=== PATIENT | female | born 1950 | race Caucasian/White ===

== ENCOUNTER 2021-10-23 13:59 | Outpatient (CLI) | payer MEDICARE, SELFPAY ==
[2021-10-23 19:46] LABS: Bacteria Urine Trace /hpf; Mucus Urine Rare /lpf; RBC Urine 0-2 /hpf (0-2); Squamous Epithelial Cell Urine Rare /hpf (Few); WBC Urine 0-3 /hpf
[2021-10-23 19:48] LABS: Appearance Urine Clear (Clear); Bilirubin Urine Negative (Negative); Blood Urine Negative (Negative); Color Urine Yellow (Yellow); Glucose Urine UA Negative (Negative); Ketones Urine Negative (Negative); Leukocyte Esterase Ur Trace LEU/UL (Negative); Nitrate Urine Negative (Negative); Protein Urine 1+ mg/dL (Negative); Urobilinogen Urine 0.2 mg/dL (<2.0); pH Urine 5.5 (5.0-9.0)
[2021-10-23 19:56] LABS: Add Urine Microscopic? YES
== END 2021-10-23 14:00 | disposition home or self-care (01) ==
LOC: ANHGOSHLAB 14:04
PROVIDERS: PCP Emergency Medicine; Visit Provider Emergency Medicine
DX: R22.41 Localized swelling, mass and lump, right lower limb (principal); R55 Syncope and collapse; R31.9 Hematuria, unspecified
CPT/HCPCS: 81001

== ENCOUNTER 2021-12-24 12:25 | Emergency (ER) | payer MEDICARE, SELFPAY ==
--- NOTE | ~2021-12-24 | XR_ITS ---
EXAMINATION: XR foot LT min 3V DATE: 12/24/2021 12:59 INDICATION: Anterior left foot pain post trauma TECHNIQUE: Dorsoplantar, two oblique and lateral views of the left foot were obtained. COMPARISON: None. FINDINGS: Alignment is normal. No fracture. Polyarticular osteoarthritis, mild to moderate severity at multiple interphalangeal joints and mild at the majority the remaining joints in the mid and hindfoot. Modera te to large Achilles and plantar calcaneal spurs. Sclerotic margin in the distal tibial metadiaphysis with suggestion of ring and arc-like chondroid matrix favoring an enchondroma. Soft tissues are unre markable. IMPRESSION: 1. Mild to moderate polyarticular osteoarthritis with interphalangeal joint predominance. No acute os seous abnormalities. 2. Sclerotic lesion in the distal left tibial metadiaphyseal region with appearance favoring an encho ndroma but incompletely visualized, inadequate to assess for aggressive features and would recommend dedicated left tibia and fibula radiographs for further evaluation. Reviewed, dictated and finalized at location A. IMPRESSION: 1. Mild to moderate polyarticular osteoarthritis with interphalangeal joint pre dominance. No acute osseous abnormalities. 2. Sclerotic lesion in the distal left tibial metadiaphyseal region with appear ance favoring an enchondroma but incompletely visualized, inadequate to assess for aggressive features and would recommend dedicated left tibia and fibula rad iographs for further evaluation.
[2021-12-24 12:32] VITALS: BP 142/78; PULSE 79; RESP 20; TEMP 36.6; O2SAT 98
--- NOTE | 2021-12-24 13:02 | ED.LOWEXIN ---
HPI - Extremity Injury (Lower) General Chief Complaint: Extremity Injury, Lower Stated Complaint: left foot injury Time Seen by Provider: 12/24/21 12:35 Source: patient Mode of arrival: ambulatory Limitations: no limitations History of Present Illness HPI Narrative: Ms. Castle is a 71-year-old female patient presenting to the clinic today with complaints of left foot pain/injury stubbing her toe on . She reports that the top of her foot is bruised and painful with ambulation. Noticed some swelling to her lateral and medial foot last night Related Data Home Medications Medication Instructions Recorded Confirmed cyanocobalamin (vitamin B-12) 1,000 mcg PO ONCE 12/01/19 12/24/21 1,000 mcg tablet (Vitamin B-12) aspirin 325 mg tablet 325 mg PO DAILY 04/20/21 12/24/21 ferrous sulfate 325 mg (65 mg 325 mg PO DAILY 09/18/21 12/24/21 iron) tablet Allergies Allergy/AdvReac Type Severity Reaction Status Date / Time erythromycin base Allergy Unknown Nausea Verified 12/24/21 12:47 Review of Systems Review of Systems: Pertinent positives per HPI. Patient denies any fever, chills, rash, headache, visual changes, dizziness, cough, runny nose, sore throat, shortness of breath, chest pain, palpitations, nausea, vomiting, diarrhea, constipation, abdominal pain, or any urinary issues. [facility] Past Medical History Medical History Allergies Benign essential hypertension Congestive heart failure Coronary artery disease Depression Heart disease History of echocardiogram (~02/21/11) Hypothyroidism Metabolic syndrome X Mixed hyperlipidemia Positive cardiac stress test (~02/12/11) referred to cardio Thyroid disorder Type 1 diabetes mellitus Surgical History Surgical History History of tonsillectomy (~195) Hx of CABG (~2011) Family History Family History Father Diabetes mellitus Family history of hypercholesterolemia Hypertension Family history of cardiovascular disease Family history of kidney disease Family history of atrial fibrillation, Onset Age: 84 Family history of congestive heart failure, Onset Age: 84 Thyroid disorder Sibling Family history of cardiovascular disease Patient's brother is , Onset Age: 47 Alcoholism Diabetes mellitus Hypertension Heart disease Mother Heart disease Cerebrovascular accident Grandparent Diabetes mellitus Heart disease Other Family history of elevated blood lipids Social History Social History Smoking status: Former smoker Smoking end date: 03/04/06 Alcohol intake: never 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 There is no relevant family history pertinent to the patient complaint. Exam Narrative: General: Well-developed, well nourished, in no apparent distress Head: Normocephalic, atraumatic. Cardio: Regular rate and rhythm, s1 and s2 normal, no murmur appreciated. Resp: Clear to auscultation bilaterally, no rhonchi, rales, wheezing or rubs. Musculoskeletal: No deformity, tender to palpation over the dorsal foot with tenderness to the base of the second toe on the left foot, grossly normal range of motion, muscle strength strong and equal, peripheral pulse strong, no edema, no cyanosis, normal gait and station Course Course Emergency Course: Portions of this record may have been created with voice recognition software. Level of Care: Express Care Visit Vital Signs Vital signs: Vital Signs Temperature 36.6 C 12/24/21 12:32 Pulse Rate 79 12/24/21 12:32 Re
== END 2021-12-24 13:52 | disposition home or self-care (01) ==
PROVIDERS: Emergency Provider Nurse Practitioner Family
DX: M79.672 Pain in left foot (principal); M79.89 Other specified soft tissue disorders; Z87.891 Personal history of nicotine dependence; I11.0 Hypertensive heart disease with heart failure; I50.9 Heart failure, unspecified; I25.10 Atherosclerotic heart disease of native coronary artery without angina pectoris; E03.9 Hypothyroidism, unspecified; E78.2 Mixed hyperlipidemia; E10.9 Type 1 diabetes mellitus without complications; E88.81 Metabolic syndrome and other insulin resistance; Z95.1 Presence of aortocoronary bypass graft
CPT/HCPCS: 73630; 99213; G0463

== ENCOUNTER 2022-08-10 08:32 | Outpatient (CLI) | payer MEDICARE, SELFPAY ==
[2022-08-10 08:47] LABS: Basophils Absolute Auto 0.04 K/mm3 (0.00-0.10); Basophils Percent Auto 0.8 % (0.0-1.0); Eosinophils Absolute Auto 0.21 K/mm3 (0.02-0.50); Eosinophils Percent Auto 4.1 % (1.0-6.0); Hematocrit 35.5 % (35.0-42.0); Hemoglobin 10.9 g/dL (11.7-13.8); Immature Granulocyte Absolute 0.01 K/mm3 (0.00-0.00); Immature Granulocyte Percent A 0.2 % (0.0-0.0); Lymphocytes Absolute Auto 1.35 K/mm3 (1.10-4.50); Lymphocytes Percent Auto 26.1 % (18.0-42.0); Mean Corpuscular HGB Conc 30.7 g/dL (32.0-36.0); Mean Corpuscular Hemoglobin 28.4 pg (27.0-31.0); Mean Corpuscular Volume 92.4 fL (78.0-102.0); Mean Platelet Volume 9.2 fl (9.2-11.8); Monocytes Absolute Auto 0.37 K/mm3 (0.10-0.90); Monocytes Percent Auto 7.1 % (2.0-11.0); Neutrophils Absolute Auto 3.2 K/mm3 (1.7-7.2); Neutrophils Percent Auto 61.7 % (50.0-70.0); Platelet Count Result 210 K/mm3 (150-420); Red Blood Count 3.84 M/mm3 (4.20-5.40); White Blood Count 5.2 K/mm3 (4.8-10.8)
[2022-08-10 09:13] LABS: Hemoglobin A1C 6.3 % (<5.7)
[2022-08-10 09:15] LABS: Creatinine Urine 97.68 mg/dL (40-278); Microalbumin Urine Random 132.9 mg/L
[2022-08-10 09:40] LABS: Alanine Aminotransferase 22 U/L (14-59); Albumin Level 4.1 g/dL (3.4-5.0); Alkaline Phosphatase 54 U/L (46-116); Anion Gap 10 mmol/L (8-16); Aspartate Amino Transferase 19 U/L (15-37); Bilirubin,Total 0.2 mg/dL (0.00-1.00); Blood Urea Nitrogen 20 mg/dL (7-18); Calcium 9.4 mg/dL (8.5-10.1); Carbon Dioxide 30 mmol/L (21-32); Chloride 101 mmol/L (98-108); Cholesterol 153 mg/dL (0-200); Estimated Glomerular Filt Rate 47; Free T4 Free Thyroxine 1.17 ng/dL (0.76-1.46); Glucose 160 mg/dL (70-99); HDL Direct 42 mg/dL (40-60); LDL Cholesterol Calculated 75 mg/dL (<130); Osmolality Calculated 297 mOsm/kg (285-295); Potassium 4.3 mmol/L (3.5-5.1); Sodium 141 mmol/L (136-145); Thyroid Stimulating Hormone 0.28 uIU/mL (0.36-3.74); Total Protein 6.9 g/dL (6.4-8.2); Triglycerides 182 mg/dL (0-150)
[2022-08-10 11:34] LABS: Immature Reticulocyte Fraction 13.5 % (2.0-16.52); Reticulocyte Hemoglobin Conten 30.7 pg (28.0-35.0); Reticulocyte Percent 1.21 % (0.50-1.50); Reticulocytes Absolute 0.05 M/mm3 (0.02-0.1)
[2022-08-10 11:54] LABS: Ferritin 76 ng/mL (8-252); Iron 53 ug/dL (50-170); Percent Iron Saturation 15 % (12-57)
== END 2022-08-10 08:33 | disposition home or self-care (01) ==
LOC: CHSLAB 08:35
PROVIDERS: PCP Emergency Medicine; Visit Provider Physician Assistant
DX: E03.9 Hypothyroidism, unspecified (principal); E11.65 Type 2 diabetes mellitus with hyperglycemia; E78.2 Mixed hyperlipidemia; D64.9 Anemia, unspecified; E66.9 Obesity, unspecified
CPT/HCPCS: 36415; 80053; 80061; 82043; 82728; 83036; 83540; 83550; 84439; 84443; 85025; 85046

== ENCOUNTER 2022-10-02 08:04 | Outpatient (CLI) | payer MEDICARE, SELFPAY ==
--- NOTE | ~2022-10-02 | MM_ITS ---
EXAMINATION: MM screening cyrus BI w christiano HISTORY: Screening mammogram TECHNIQUE: Craniocaudal and mediolateral oblique 3-D tomosynthesis images were obtained and synthetic 2-D images were generated. CAD analysis was submitted and interpreted. COMPARISON: No prior mammogram is available for comparison at this institution. BREAST PARENCHYMAL COMPOSITION: There are scattered areas of fibroglandular density. FINDINGS: Occasional bilateral benign calcifications. There is no evidence of suspicious mass, calcif ication, or architectural distortion to suggest malignancy in either breast. There has been no suspic ious interval change. IMPRESSION: 1. No mammographic evidence of malignancy. 2. Recommend routine screening mammography in one year. BI-RADS Category 1: Negative Reviewed, dictated and finalized at location A.
[2022-10-02 08:19] LABS: Hemoglobin 11.2 g/dL (11.7-13.8); Mean Corpuscular Hemoglobin 28.9 pg (27.0-31.0); Mean Corpuscular Volume 90.4 fL (78.0-102.0); Mean Platelet Volume 9.7 fl (9.2-11.8); Platelet Count Result 228 K/mm3 (150-420); Red Blood Count 3.87 M/mm3 (4.20-5.40); Red Cell Distribution Width 12.8 % (11.6-14.4); White Blood Count 5.2 K/mm3 (4.8-10.8)
[2022-10-02 09:24] LABS: Free T4 Free Thyroxine 0.99 ng/dL (0.76-1.46); Thyroid Stimulating Hormone 0.37 uIU/mL (0.36-3.74)
== END 2022-10-02 08:05 | disposition home or self-care (01) ==
LOC: CHSIMG 08:05
PROVIDERS: PCP Emergency Medicine; Visit Provider Physician Assistant
DX: Z12.31 Encounter for screening mammogram for malignant neoplasm of breast (principal); E11.65 Type 2 diabetes mellitus with hyperglycemia; M54.2 Cervicalgia
CPT/HCPCS: 36415; 77063; 77067; 84439; 84443; 85027

== ENCOUNTER 2022-12-11 15:49 | Outpatient (CLI) | payer MEDICARE, SELFPAY ==
[2022-12-11 16:04] LABS: Basophils Absolute Auto 0.1 K/mm3 (0.0-0.1); Basophils Percent Auto 1.1 % (0.2-1.2); Eosinophils Absolute Auto 0.2 K/mm3 (0-0.3); Eosinophils Percent Auto 4.2 % (0-4.4); Hematocrit 36.1 % (37.0-47.0); Hemoglobin 11.3 g/dL (12.0-15.0); Immature Granulocyte Absolute 0.02 K/mm3 (0.00-0.031); Immature Granulocyte Percent A 0.4 % (0-0.5); Lymphocytes Absolute Auto 2.09 K/mm3 (0.9-3.2); Lymphocytes Percent Auto 37.7 % (18.3-44.2); Mean Corpuscular HGB Conc 31.3 g/dl (32-36); Mean Corpuscular Hemoglobin 28.3 pg (26-34); Mean Corpuscular Volume 90.5 fl (80-100); Mean Platelet Volume 9.1 fl (7.4-10.4); Monocytes Absolute Auto 0.5 K/mm3 (0.1-0.6); Monocytes Percent Auto 8.3 % (2.6-8.5); Neutrophils Absolute Auto 2.7 K/mm3 (1.3-6.7); Neutrophils Percent Auto 48.3 % (45.5-73.1); Platelet Count Result 250 k/mm3 (150-375); Red Blood Count 3.99 M/mm3 (4.2-5.4); Red Cell Distribution Width 13.2 % (11.5-14.5); White Blood Count 5.5 K/mm3 (4.5-10.0)
[2022-12-11 16:43] LABS: Alanine Aminotransferase 29 U/L (6-35); Albumin Level 4.7 g/dL (3.5-5.1); Alkaline Phosphatase 64 U/L (38-126); Anion Gap 7 mmol/L (8-16); Aspartate Amino Transferase 30 U/L (14-36); Bilirubin,Total 0.4 mg/dL (0.2-1.3); Blood Urea Nitrogen 18 mg/dL (7-17); Calcium 9.6 mg/dL (8.4-10.2); Carbon Dioxide 32 mmol/L (22-30); Chloride 100 mmol/L (98-107); Estimated Glomerular Filt Rate 44; Glucose 96 mg/dL (65-110); Iron 107 ug/dL (37-170); Potassium 4.3 mmol/L (3.4-5.0); Sodium 139 mmol/L (137-145)
[2022-12-11 16:53] LABS: Percent Iron Saturation 29 % (20-50)
[2022-12-11 17:53] LABS: Folic Acid > 20.0 ng/mL (2.76->20)
[2022-12-13 16:21] LABS: Albumin 4.4 g/dL (3.8-4.8); Alpha 1 Globulin 0.3 g/dL (0.2-0.3); Alpha 2 Globulin 0.8 g/dL (0.5-0.9); Beta 1 Globulin 0.5 g/dL (0.4-0.6); Gamma Globulin 0.7 g/dL (0.8-1.7); Interpretation Consistent with
[2022-12-13 23:20] LABS: Methylmalonic Acid 138 nmol/L (87-318)
== END 2022-12-11 15:50 | disposition home or self-care (01) ==
LOC: ANHLAB 15:53
PROVIDERS: PCP Emergency Medicine; Visit Provider Internal Medicine Hematology & Oncology
DX: D64.9 Anemia, unspecified (principal)
CPT/HCPCS: 36415; 80053; 82607; 82728; 82746; 83540; 83550; 83921; 84155; 84165; 85025

== ENCOUNTER 2023-04-26 10:30 | Outpatient (CLI) | payer MEDICARE, SELFPAY ==
[2023-04-26 11:06] LABS: Basophils Absolute Auto 0.05 K/mm3 (0.00-0.10); Basophils Percent Auto 1.1 % (0.0-1.0); Eosinophils Percent Auto 4.3 % (1.0-6.0); Hematocrit 38.3 % (35.0-42.0); Immature Granulocyte Absolute 0.01 K/mm3 (0.00-0.00); Immature Granulocyte Percent A 0.2 % (0.0-0.0); Lymphocytes Absolute Auto 1.46 K/mm3 (1.10-4.50); Lymphocytes Percent Auto 31.7 % (18.0-42.0); Mean Corpuscular HGB Conc 31.3 g/dL (32.0-36.0); Mean Corpuscular Hemoglobin 27.8 pg (27.0-31.0); Mean Corpuscular Volume 88.9 fL (78.0-102.0); Mean Platelet Volume 9.8 fl (9.2-11.8); Monocytes Percent Auto 6.5 % (2.0-11.0); Neutrophils Absolute Auto 2.6 K/mm3 (1.7-7.2); Neutrophils Percent Auto 56.2 % (50.0-70.0); Platelet Count Result 236 K/mm3 (150-420); Red Blood Count 4.31 M/mm3 (4.20-5.40); Red Cell Distribution Width 13.3 % (11.6-14.4); White Blood Count 4.6 K/mm3 (4.8-10.8)
[2023-04-26 12:56] LABS: Alanine Aminotransferase 49 U/L (14-59); Alkaline Phosphatase 60 U/L (46-116); Anion Gap 7 mmol/L (8-16); Aspartate Amino Transferase 32 U/L (15-37); Bilirubin,Total 0.2 mg/dL (0.00-1.00); Blood Urea Nitrogen 20 mg/dL (7-18); Calcium 9.2 mg/dL (8.5-10.1); Carbon Dioxide 30 mmol/L (21-32); Chloride 103 mmol/L (98-108); Cholesterol 349 mg/dL (0-200); Estimated Glomerular Filt Rate 45; Glucose 193 mg/dL (70-99); HDL Direct 48 mg/dL (40-60); LDL Cholesterol Calculated 226 mg/dL (<130); Osmolality Calculated 297 mOsm/kg (285-295); Potassium 4.7 mmol/L (3.5-5.1); Sodium 140 mmol/L (136-145); Total Protein 6.8 g/dL (6.4-8.2); Triglycerides 376 mg/dL (0-150)
[2023-04-26 14:39] LABS: Thyroid Stimulating Hormone Reflex 2.99 u/IU/mL (0.36-3.74)
[2023-04-26 15:13] LABS: Microalbumin Urine Random 337.2 mg/L
[2023-04-26 15:14] LABS: Creatinine Urine 221.27 mg/dL (40-278); MALB Creatinine Ratio 152.3 mg/g (0-30)
[2023-04-29 10:54] LABS: Hemoglobin A1C 7.7 % (<5.7)
== END 2023-04-26 10:31 | disposition home or self-care (01) ==
LOC: CHSLAB 10:33
PROVIDERS: PCP Emergency Medicine; Visit Provider Physician Assistant
DX: I10 Essential (primary) hypertension (principal); E78.2 Mixed hyperlipidemia; E66.9 Obesity, unspecified; E11.65 Type 2 diabetes mellitus with hyperglycemia; E03.9 Hypothyroidism, unspecified
CPT/HCPCS: 36415; 80053; 80061; 82043; 83036; 84443; 85025

== ENCOUNTER 2023-04-28 10:27 | Emergency (ER) | payer MEDICARE, SELFPAY ==
[2023-04-28 10:30] VITALS: BP 96/68; PULSE 107; RESP 20; TEMP 36.8; O2SAT 97
--- NOTE | 2023-04-28 11:12 | ED.URI ---
HPI - URI/Sore Throat General Chief Complaint: Upper Respiratory Infection Stated Complaint: cough/fever/headache Time Seen by Provider: 04/28/23 10:55 Source: patient, RN notes reviewed and old records reviewed Mode of arrival: ambulatory Limitations: no limitations History of Present Illness HPI Narrative: 72-year-old female who presents to [facility] with 3 day history of dry cough, headache, fevers up to 101F and reports some chest heaviness but denies shortness of breath or wheezing. Patient reports that she has been taking Tylenol and also cough syrup for her symptoms. Patient reports that she has had COVID vaccinations but did not take one this year or the RSV shot but did have flu shot. MD elicited complaint: fever, cough, rhinorrhea, nasal congestion and other (headache) Onset (ago): day(s) (3) Pain scale (0-10): 6 Able to tolerate fluids by mouth: Yes Treatments prior to arrival: acetaminophen and other (cough syrup) Related Data Home Medications Medication Instructions Recorded Confirmed cyanocobalamin (vitamin B-12) 1,000 mcg PO ONCE 12/01/19 04/28/23 1,000 mcg tablet (Vitamin B-12) aspirin 325 mg tablet 325 mg PO DAILY 04/20/21 04/28/23 ferrous sulfate 325 mg (65 mg 325 mg PO DAILY 09/18/21 04/28/23 iron) tablet Allergies Allergy/AdvReac Type Severity Reaction Status Date / Time erythromycin base Allergy Unknown Nausea Verified 01/14/23 09:50 Review of Systems Review of Systems: CONSTITUTIONAL: reports malaise, chills, sweats, or fever. EYES: Denies visual changes, redness, or discharge. ENT: Reports rhinorrhea, congestion, no sinus pain, no otalgia and no sore throat. CARDIOVASCULAR: Denies chest pain, palpitations, or edema. RESPIRATORY: Reports cough.? Denies dyspnea.states some heaviness chest denies any shortness of breath or wheezing GASTROINTESTINAL: Denies abdominal pain, nausea, vomiting, diarrhea SKIN: Denies rash or itching. MUSCULOSKELETAL: Reports myalgia. NEUROLOGIC: Reports headache. All systems reviewed & are unremarkable except as noted in HPI and below PMFSH Past Medical History Medical History Allergies Benign essential hypertension Congestive heart failure Coronary artery disease Depression Heart disease History of echocardiogram (~02/21/11) Hypothyroidism Metabolic syndrome X Mixed hyperlipidemia Positive cardiac stress test (~02/12/11) referred to cardio Thyroid disorder Type 1 diabetes mellitus Surgical History Surgical History History of tonsillectomy (~1956) Hx of CABG (~2011) Family History Family History Father Diabetes mellitus Family history of hypercholesterolemia Hypertension Family history of cardiovascular disease Family history of kidney disease Family history of atrial fibrillation, Onset Age: 84 Family history of congestive heart failure, Onset Age: 84 Thyroid disorder Sibling Family history of cardiovascular disease Patient's brother is , Onset Age: 47 Alcoholism Diabetes mellitus Hypertension Heart disease Mother Heart disease Cerebrovascular accident Grandparent Diabetes mellitus Heart disease Other Family history of elevated blood lipids Social History Social History Social History: Caffeine-coffee daily Smoking status: Former smoker Smoking end date: 03/04/06 Alcohol intake: current Alcohol use details: wine occasionally Lack of Transportation: No Lack of Food: Never True Current Housing: I Have Housing Concerned About Future Housing: No Difficulty Paying Gas/Electric Bills: No Difficulty Paying for Meds: No Currently Unemployed: No Education: High School Diploma/GED Difficulty w/ Childcare or Family Care: No Herlinda
== END 2023-04-28 11:35 | disposition home or self-care (01) ==
PROVIDERS: Emergency Provider Registered Nurse; PCP Emergency Medicine
DX: U07.1 COVID-19 (principal); Z87.891 Personal history of nicotine dependence; I11.0 Hypertensive heart disease with heart failure; I50.9 Heart failure, unspecified; I25.10 Atherosclerotic heart disease of native coronary artery without angina pectoris; E03.9 Hypothyroidism, unspecified; E88.810 Metabolic syndrome; E78.2 Mixed hyperlipidemia; E10.9 Type 1 diabetes mellitus without complications; Z95.1 Presence of aortocoronary bypass graft
CPT/HCPCS: 87426; 87804; 99213; G0463

== ENCOUNTER 2023-08-02 08:37 | Outpatient (CLI) | payer MEDICARE, SELFPAY ==
[2023-08-02 09:12] LABS: Hemoglobin A1C 7.2 % (<5.7)
[2023-08-02 09:45] LABS: Alanine Aminotransferase 32 U/L (14-59); Albumin Level 4.1 g/dL (3.4-5.0); Alkaline Phosphatase 51 U/L (46-116); Anion Gap 9 mmol/L (4-12); Aspartate Amino Transferase 19 U/L (15-37); Bilirubin,Total 0.2 mg/dL (0.00-1.00); Blood Urea Nitrogen 23 mg/dL (7-18); Calcium 9.3 mg/dL (8.5-10.1); Carbon Dioxide 30 mmol/L (21-32); Chloride 105 mmol/L (98-108); Cholesterol 156 mg/dL (0-200); Estimated Glomerular Filt Rate 37; Free T3 2.19 pg/mL (2.18-3.98); Free T4 Free Thyroxine 0.94 ng/dL (0.76-1.46); Glucose 172 mg/dL (70-99); HDL Direct 47 mg/dL (40-60); LDL Cholesterol Calculated 78 mg/dL (<130); LDL Cholesterol Direct 83 mg/dL (0-130); Osmolality Calculated 305 mOsm/kg (285-295); Potassium 4.8 mmol/L (3.5-5.1); Sodium 144 mmol/L (136-145); Thyroid Stimulating Hormone 2.55 uIU/mL (0.36-3.74); Total Protein 6.8 g/dL (6.4-8.2); Triglycerides 157 mg/dL (0-150)
[2023-08-04 01:59] LABS: Total Triiodothyronine (T3) 87 ng/dL (76-181)
== END 2023-08-02 08:38 | disposition home or self-care (01) ==
LOC: CHSLAB 08:38
PROVIDERS: PCP Emergency Medicine; Visit Provider Emergency Medicine
DX: E78.00 Pure hypercholesterolemia, unspecified (principal); E78.2 Mixed hyperlipidemia; E03.9 Hypothyroidism, unspecified; E11.65 Type 2 diabetes mellitus with hyperglycemia
CPT/HCPCS: 36415; 80053; 80061; 83036; 83721; 84439; 84443; 84480; 84481